=== PATIENT | male | born 1985 | race Caucasian/White ===

== ENCOUNTER 2019-06-27 18:49 | Emergency (ER) | payer BC ==
[2019-06-27] MEDS ORDERED: ASPIRIN 325 MG TABLET PO ONE (18:57)
[2019-06-27 19:06] LABS: ABSOLUTE NEUTROPHIL COUNT 3.72; BASO % 0.3 % (0-6); EOS % 4.1 % (0-6); GRAN % 52.9 % (47-80); HEMATOCRIT 48.1 % (35.0-47.0); HEMOGLOBIN 16.8 gm/dl (11.6-16.0); LYMPH % 34.5 % (16-45); MEAN CELL VOLUME 83.9 fl (81-97); MEAN CORPUSCULAR HEMOGLOBIN 29.3 pg (27-33); MEAN CORPUSCULAR HGB CONC 34.9 g/dl (32-36); MEAN PLATELET VOLUME 11.5 fl (7.4-10.4); MONO % 8.2 % (0-9); PLATELET COUNT 207 K/uL (130-400); RED BLOOD COUNT 5.73 M/uL (3.80-5.40); RED CELL DISTRIBUTION WIDTH 12.9 % (11.5-14.5)
--- NOTE | 2019-06-27 19:07 | Emergency Department Record ---
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 He states it does not radiated but is associated with slight diaphoresis, and has increased discomfort with a deep breath. He states he has no medication allergies, and takes no daily medications. He denies DM, htn, doesn't know his cholesterol levels, and doesn't know his family to know a family history. He has no prior EKG's that we know of at this point in time. - Related Data Home Medications Medication Instructions Recorded Confirmed Last Taken Multivit-Min/Folic/Vit K/Lycop 1 tab PO DAILY 06/27/19 06/27/19 06/27/19 [Men's Multivitamin Tablet] [place]-3 Fatty Acids/Fish Oil [Fish 1 each PO DAILY 06/27/19 06/27/19 06/27/19 Oil 1,000 mg Capsule] Allergies Allergy/AdvReac Type Severity Reaction Status Date / Time No Known Drug Allergies Allergy Verified 06/27/19 18:59 Review of Systems Reviewed: No additional complaints except as noted below Constitutional: Reports: As per HPI. Denies: Chills, Fever, Malaise, Night sweats, Weakness, Weight change Eyes: Reports: As per HPI. Denies: Eye discharge, Eye pain, Photophobia, Vision change ENT: Reports: As per HPI. Denies: Congestion, Dental pain, Ear pain, Epistaxis, Hearing loss, Throat pain Respiratory: Reports: As per HPI. Denies: Cough, Dyspnea, Hemoptysis, Stridor, Wheezes Cardiovascular: Reports: As per HPI. Denies: Arrhythmia, Chest pain, Dyspnea on exertion, Edema, Murmurs, Orthopnea, Palpitations, Paroxysmal nocturnal dyspnea, Rheumatic Fever, Syncope Endocrine: Reports: As per HPI. Denies: Fatigue, Heat or cold intolerance, Polydipsia, Polyuria Gastrointestinal: Reports: As per HPI. Denies: Abdominal pain, Constipation, Diarrhea, Hematemesis, Hematochezia, Melena, Nausea, Vomiting Genitourinary: Reports: As per HPI. Denies: Abnormal menses, Discharge, Dyspareunia, Dysuria, Frequency, Hematuria, Incontinence, Retention, Urgency Musculoskeletal: Reports: As per HPI. Denies: Arthralgia, Back pain, Gout, Joint swelling, Myalgia, Neck pain Skin: Reports: As per HPI. Denies: Bruising, Change in color, Change in hair /nails, Lesions, Pruritus, Rash Neurological: Reports: As per HPI. Denies: Abnormal gait, Confusion, Headache, Numbness, Paresthesias, Seizure, Tingling, Tremors, Vertigo, Weakness Psychiatric: Reports: As per HPI. Denies: Anxiety, Auditory hallucinations, Depression, Homicidal thoughts, Suicidal thoughts, Visual hallucinations Hematological/Lymphatic: Reports: As per HPI. Denies: Anemia, Blood Clots, Easy bleeding, Easy bruising, Swollen glands Physical Exam - General General Appearance: Alert, Oriented x3, Cooperative, Moderate distress, Anxious, Other (clammy) - Head Head exam: Normal inspection - Eye Eye exam: Normal appearance, PERRL, EOMI. negative: Conjunctival injection, Nystagmus Pupils: Normal accommodation - ENT ENT exam: Normal exam, Mucous membranes moist, Normal external ear exam, Normal orophraynx, TM's normal bilaterally Ear exam: Normal external inspection. negative: External canal tenderness Nasal Exam: Normal inspection. negative: Discharge, Sinus tenderness Mouth exam: Normal external inspection, Tongue normal Teeth exam: Normal inspection. negative: Dental caries Throat exam: Normal inspection. negative: Tonsillar erythema, Tonsillar exudate - Neck Neck exam: Normal inspection, Full ROM. negative: Lymphadenopathy, Meningismus, Tenderness - Respiratory Respiratory exam: Normal lung sounds bilaterally, Chest wall tenderness (trace tenderness on sternum with palpations). negative: Respiratory distress - Cardiovascular Cardiovascular Exam: Regular rate, Normal rhythm, Normal heart sounds - GI/Abdominal GI/Abdominal exam: Soft, Normal bowel sounds. negative: Tenderness - Rectal Rectal exam: Deferred - exam: Deferred - Extremities Extremities exam: Normal inspection, Full ROM, Normal capillary refill. negative: Calf tenderness, Pedal edema, Tenderness - Back Back exam: Reports: Normal inspection, Full ROM. Denies: CVA tenderness (R), CVA tenderness (L), Muscle spasm, Rash noted, Tenderness - Neurological Neurological exam: Alert, CN II-XII intact, Normal gait, Oriented X3, Reflexes normal. negative: Altered, Motor sensory deficit - Psychiatric Psychiatric exam: Anxious, Normal affect, Normal mood - Skin Skin exam: Dry, Intact, Normal color, Warm Course - Reevaluation(s) Reevaluation #1: 06/27/19 19:[address] Iggy Dodson Cardiology Interventionalist who was texted the patient's EKG. He advised no intervention at this time, but accepted him as a direct admit. Inferior leads II, III, AVF with [address] elevations with possible early re-polarization. No prior. Patient and fiancee aware and in agreement with plan. 06/27/19 19:43 Reevaluation #2: Patient has had 3 nitros s.l. with no significant change in his "tight" component of his chest pain. He has had decreased episodes of the sharp stabbing severe pains since arriving here. Room assignment given, EMS called. troponin and d dimer both normal. Portable CXR read by me as Neg. Patient and fiance informed of results. All questions answered. 06/27/19 19:44 Medical Decision Making - Management Options MDM Management: Additional Work-up Planned (e.g. ADM/Transfer/OP Study) - Data Complexity MDM Data: Labs Ordered and/or Reviewed (troponin and d dimer both normal), X-Ray Ordered and/or Reviewed (Portable CXR red by me as normal. 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 Time Discussed w/Accepting Physician: 07:10 Condition: (2) Stable Quality - Quality Measures Quality Measures: N/A - Blood Pressure Screening Does Patient Have Any of the Following: No Systolic Measurement: ~ Screening for High Blood Pressure: < Normal BP, F/U Not Required > [G8783]
[2019-06-27] MEDS ORDERED: NITROGLYCERIN 0.4MG SL TABLET #25 BTL SL ONE (19:09)
[2019-06-27] MEDS: NITROGLYCERIN 0.4MG SL TABLET #25 BTL SL PRN ×3 (19:10→19:26)
[2019-06-27 19:18] LABS: BLOOD UREA NITROGEN 17 mg/dL (6-20); EST GLOMERULAR FILTRATION RATE > 60 mL/min
[2019-06-27 19:19] LABS: TOTAL PROTEIN 7.5 g/dL (6.6-8.7)
[2019-06-27 19:21] LABS: GLUCOSE,RANDOM 98 mg/dL (74-109)
[2019-06-27 19:24] LABS: ALB/GLOB RATIO 1.8 (1.1-1.8); ALBUMIN 4.8 g/dL (4.0-5.0); ALKALINE PHOSPHATASE 69 U/L (35-104); ALT/SGPT 42 U/L (<33); AST/SGOT 25 U/L (10.0-35.0)
[2019-06-27 19:30] LABS: PARTIAL THROMBOPLASTIN TIME 26.4 SECONDS (24.5-39.1); PROTHROMBIN TIME (PATIENT) 10.3 SECONDS (9.5-12.1)
[2019-06-27 19:35] LABS: THYROID STIMULATING HORMONE 3.45 uIU/mL (0.270-4.20)
[2019-06-27 19:58] LABS: URINE APPEARANCE CLEAR; URINE BILIRUBIN NEGATIVE (NEGATIVE); URINE BLOOD NEGATIVE (NEGATIVE); URINE COLOR YELLOW; URINE GLUCOSE (UA) NEGATIVE (NEGATIVE); URINE KETONE NEGATIVE (NEGATIVE); URINE LEUKOCYTE ESTERASE NEGATIVE (NEGATIVE); URINE NITRITE NEGATIVE (NEGATIVE); URINE PROTEIN NEGATIVE (NEGATIVE); URINE UROBILINOGEN 0.2 E.U./dL (0.20 - 1.00)
[2019-06-27 20:01] LABS: AMPHETAMINE SCREEN URINE NOT DETECTED; BARBITURATE SCREEN URINE NOT DETECTED; BENZODIAZEPINE SCREEN URINE NOT DETECTED; COCAINE SCREEN URINE NOT DETECTED; METHADONE SCREEN URINE NOT DETECTED; METHAMPHETAMINE SCREEN NOT DETECTED; OPIATE SCREEN URINE NOT DETECTED; OXYCODONE SCREEN URINE NOT DETECTED; PHENCYCLIDINE SCREEN URINE NOT DETECTED; PROPOXYPHENE SCREEN URINE NOT DETECTED; THC SCREEN URINE NOT DETECTED; TRICYCLIC ANTIDEPRESSANT SCRN NOT DETECTED
[2019-06-27] MEDS ORDERED: KETOROLAC 30 MG/ML VIAL IVP ONE (20:07)
--- NOTE | 2019-06-28 13:28 | RADIOLOGY REPORT ---
EXAM: CHEST, ONE VIEW HISTORY: CHEST PAIN BEGINNING AT 13:00 TODAY. WORSENING. TECHNIQUE: Two upright AP views of the chest are obtained. Comparison: None. FINDINGS: The cardiomediastinal silhouette is normal in size and configuration. The pulmonary vasculature is nondilated. The lungs are symmetrically inflated. No abnormal lung parenchymal opacity is seen nor is there costophrenic angle blunting or pneumothorax. No acute osseous abnormality identified. IMPRESSION: NO EVIDENCE OF ACUTE CARDIOPULMONARY DISEASE. JOB NUMBER: [id number] [facility]
== END 2019-06-27 22:04 | disposition short-term general hospital (02) ==
LOC: ER 18:49 → EDSEX 18:49 → ER 22:04
DX: R07.89 Other chest pain (principal); R61 Generalized hyperhidrosis
CPT/HCPCS: 71045; 80053; 80305; 81003; 84443; 84484; 85025; 85379; 85610; 85730; 93005; 93010; 96374; 99285; J1885